=== PATIENT | male | born 1945 | race Caucasian/White ===

== ENCOUNTER → 2023-04-10 13:17 | Outpatient (CLI) | payer OTHER, SELFPAY ==
--- NOTE | 2023-04-10 | DI.ECHO.S_ITS ---
[facility]---------+ [facility] +---------+ : : [address] : [address] [address] : : : : [id number] : : : : Phone: [phone]---------+ Echocardiogram Report + + :Name: KENDELL CASTLE Study Date: 04/10/2023 Height: 68 in : :[facility] ReadingLocation: Weight: 150 lb : : Gender: Male BSA: 1.8 m2 : :: 1945 Age: 78 yrs BP: 126/78 mmHg: :Reason For Study: GENERAL ADULT MEDICAL EXAMINATION : :Ordering Physician: JUAN, : :DIPIKA Performed By: Yoly Jackson : :Referring: DIPIKA MARTINEZ : + + Interpretation Summary Normal sinus rhythm. Normal LV size and wall thickness; normal wall motion and LV systolic function. EF is 60-65%. Moderate LA enlargement; otherwise normal chamber sizes. No significant valvular abnormalities. No prior study available for comparison. Procedure: A two-dimensional transthoracic echocardiogram with color flow and Doppler was performed. The study quality was technically adequate. There is no prior echocardiogram noted for this patient. The patient was in sinus rhythm with heart rates between 55-64 bpm during the exam. Left Ventricle: Proximal septal thickening is noted. The left ventricle is normal in size. The ejection fraction is estimated to be 60-65%. Right Ventricle: The right ventricle is normal in size and function. Atria: The left atrium is moderately dilated. Right atrial size is normal. There is no Doppler evidence for an interatrial shunt. Mitral Valve: The mitral valve is normal in structure and function. There is mild mitral regurgitation. Aortic Valve: The aortic valve is trileaflet. The aortic valve opens well. There is no aortic valve stenosis. There is mild aortic regurgitation. Tricuspid Valve: The tricuspid valve is normal in structure and function. There is mild tricuspid regurgitation. Pulmonary artery pressures cannot be estimated because of the lack of a measurable TR jet velocity. Pulmonic Valve: The pulmonic valve leaflets are thin and pliable; valve motion is normal. There is mild pulmonic regurgitation. Great Vessels: The aortic root is normal size. The dimensions of the ascending aorta are normal. The IVC is of normal diameter and collapses greater than 50% with a sniff. This suggests a low right atrial pressure of 3 mm Hg. Pericardium/ Pleura There is no pericardial effusion. There is no pleural effusion. MMode/2D Measurements & Calculations LVIDd: 5.1 cm LVOT diam: 2.2 cm LVIDs: 3.2 cm Ao root diam: 3.2 cm FS: 38.1 % asc Aorta Diam: 2.9 cm IVSd: 0.78 cm Ao Arch Diam (Prox Trans): 2.8 cm LVPWd: 0.81 cm LV mckeon. diameter/BSA (cm/m^2): 2.8 LV sys. diameter/BSA (cm/m^2): 1.8 LA A2 area: 25.5 cm2 RA long axis: 5.4 cm LA A4 area: 21.9 cm2 RA area: 16.6 cm2 LA length (vol): 5.5 cm RA vol: 43.5 ml LA vol: 86.8 ml RA : 24.0 ml/m2 LA vol index: 48.0 ml/m2 IVC diam: 1.5 cm RVD1 (basal): 3.6 cm RVD2 (mid): 2.8 cm TAPSE: 2.4 cm Doppler Measurements & Calculations Ao V2 max: 161.6 cm/sec LVOT Max Madhu: 149.8 cm/sec Ao V2 mean: 105.1 cm/sec LV V1 max P.0 mmHg Ao max P.4 mmHg LV V1 VTI: 30.4 cm Ao mean P.9 mmHg JHOANA(I,D): 3.6 cm2 Ao V2 VTI: 34.0 cm JHOANA(V,D): 3.7 cm2 sev ratio: 0.89 JHOANA indexed to BSA (cm^2/m^2): 2.0 MV E max madhu: 81.2 cm/sec PA V2 max: 100.1 cm/sec MV A max madhu: 72.4 cm/sec PA V2 mean: 70.1 cm/sec MV E/A: 1.1 PA mean P.2 mmHg Med Peak E' Madhu: 6.9 cm/sec PA pr(Accel): 39.6 mmHg E/E' med: 11.8 Lat Peak E' Madhu: 8.7 cm/sec E/E' lat: 9.3 E/e' average: 10.6 MV dec time: 0.18 sec SV([facility]): 120.8 ml Electronically signed by: Paige Duron M.D. on Reading Physician:04/11/2023 01:53 AM
== END ==
PROVIDERS: Referring Provider Orthopaedic Surgery; Visit Provider Physician Assistant
DX: Z00.00 Encounter for general adult medical examination without abnormal findings (principal); I08.3 Combined rheumatic disorders of mitral, aortic and tricuspid valves
CPT/HCPCS: 93306